=== PATIENT | male | born 2000 | race Caucasian/White ===

== ENCOUNTER → 2023-07-26 | Outpatient (RCR) | payer OTHER ==
[~2023-07-26] MED LIST: LANTUS SOLOS100 U/ML SQ; NOVLOG SQ; NOVOLOG FLEX100 U/ML SQ; PROTONIX 40MG T40 MG PO; SEPTRA DS 8001 TAB PO; ZOFRAN 4MG T4 MG/TAB PO
== END ==
LOC: WSOH → EDBD 07-13 10:00 → WSOH 07-13 10:00
DX: S83.92XD Sprain of unspecified site of left knee, subsequent encounter (principal); E11.9 Type 2 diabetes mellitus without complications; E07.9 Disorder of thyroid, unspecified; F32.A Depression, unspecified; F90.9 Attention-deficit hyperactivity disorder, unspecified type; Y99.0 Civilian activity done for income or pay
CPT/HCPCS: 24091; A6549